=== PATIENT | male | born 1930 | race Caucasian/White ===

== ENCOUNTER → 2018-05-24 | Outpatient (CLI) | payer MEDICARE ==
[~2018-05-24] MED LIST: OMNIPAQUE 350 MG/ML, 100ML BOTTLE ONE
== END | disposition home or self-care (01) ==
LOC: RAD 09:43
PROVIDERS: ATTEND Internal Medicine Gastroenterology
DX: C25.9 Malignant neoplasm of pancreas, unspecified (principal); C78.7 Secondary malignant neoplasm of liver and intrahepatic bile duct; M19.012 Primary osteoarthritis, left shoulder; M19.011 Primary osteoarthritis, right shoulder; E04.2 Nontoxic multinodular goiter; N28.1 Cyst of kidney, acquired; R19.5 Other fecal abnormalities; R10.13 Epigastric pain; R63.4 Abnormal weight loss
CPT/HCPCS: 71260; 74177; Q9967

== ENCOUNTER 2018-06-01 08:14 | Day surgery (SDC) | payer MEDICARE ==
[~2018-06-01] VITALS: Ht 182.9 cm; Wt 82.7 kg
[2018-06-01 08:49] VITALS: BP 146/79
[2018-06-01] MEDS ORDERED: LACTATED RINGERS 1,000 ML IV SCH (08:53)
[2018-06-01] MEDS ORDERED: DUTASTERIDE (08:54)
[2018-06-01] MEDS ORDERED: TAMSULOSIN PO (08:54)
[2018-06-01] MEDS ORDERED: TIMOLOL (08:54)
[2018-06-01] MEDS ORDERED: CHLORHEXIDINE 15 ML UDC ONE (10:20)
[2018-06-01] MEDS ORDERED: MIDAZOLAM 1 MG/ML, 2ML ONE (10:30)
[2018-06-01] MEDS ORDERED: PROPOFOL 10 MG/ML, 20ML ONE (10:41)
[2018-06-01] MEDS ORDERED: SUCCINYLCHOLINE 20 MG/ML, 10ML ONE (10:41)
[2018-06-01] MEDS ORDERED: PIPERACILLIN/TAZO/PMX 3.375GM 50 ML ONE (10:54)
[2018-06-01] MEDS ORDERED: FENTANYL PF 100 MCG/2ML ONE (10:58)
[2018-06-01] MEDS ORDERED: ACETAMINOPHEN 325 MG TABLET PO PRN (11:30)
[2018-06-01] MEDS ORDERED: ONDANSETRON 2MG/ML, 2ML IV PRN (11:30)
[2018-06-01] MEDS ORDERED: FENTANYL PF 100 MCG/2ML IV PRN (11:30)
[2018-06-01] MEDS ORDERED: HYDROmorphone 2 MG/ML, 1ML IVPush PRN (11:30)
[2018-06-01] MEDS ORDERED: ETHYL ALCOHOL 98%, 5 ML ONE (12:00)
[2018-06-01] MEDS ORDERED: BUPIVACAINE/PF 0.25% ONE (12:00)
== END 2018-06-01 13:35 | disposition home or self-care (01) ==
LOC: OUT 08:14
PROVIDERS: ATTEND Internal Medicine Gastroenterology
DX: C25.1 Malignant neoplasm of body of pancreas (principal); K29.50 Unspecified chronic gastritis without bleeding; K44.9 Diaphragmatic hernia without obstruction or gangrene; N40.0 Benign prostatic hyperplasia without lower urinary tract symptoms
CPT/HCPCS: 36415; 43242; 86301; 88172; 88173; 88305; 93005; J0330; J2250; J2543; J2704; J3010; J3490; J7120

== ENCOUNTER 2018-06-05 09:25 | Emergency (ER) | payer MEDICARE ==
[~2018-06-05] VITALS: Ht 182.9 cm; Wt 83.0 kg
[~2018-06-05 09:25] MED LIST changes: +DUTASTERIDE; -OMNIPAQUE 350 MG/ML, 100ML BOTTLE ONE; +TAMSULOSIN PO; +TIMOLOL
--- NOTE | 2018-06-05 10:10 | NUR ---
ASSUMED CARE OF PT AT THIS TIME FROM [facility], AMBULATORY WITH STEADY GAIT, ACCOMPANIED BY SPOUSE. 87 Y/O M PRESENTS WITH ABD PAIN, STATES "ABDOMEN PAIN SINCE , EXPERIENCING SORE STOMACH, SORE BACK, DECREASED APPETITE, WEIGHT LOSS SINCE THEN. 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 May HAD BIOPSY OF PANCREAS AND INFORMATION SENT TO DR. CHAVARRIA, SUPPOSED TO SEE HIM SOMETIME THIS WEEK BUT THE STOMACH PAIN IS JUST GETTING SO UNCOMFORTABLE." RATES PAIN 4/10. ABD FIRM, DISTENDED, BOWEL SOUNDS ACTIVE, TENDER TO PALPATION. CONT PULSE OX, BP MONITORS APPLIED. VSS. A&OX4. SPOUSE AT BEDSIDE. CALL LIGHT IN REACH. FALL PRECAUTIONS IN PLACE. AWAITING EVAL BY ERP.
--- NOTE | 2018-06-05 10:13 | NUR ---
DR. CARTER AT BEDSIDE FOR EVALUATION
[2018-06-05 10:14] VITALS: BP 124/77
[2018-06-05] MEDS ORDERED: ACET-1600 PO (10:19)
--- NOTE | 2018-06-05 10:49 | NUR ---
DR. DOVE AT BEDSIDE DISCUSSING POC WITH PT AND PT SPOUSE. CONTINUE AWAITING ORDERS. VSS. RESTING COMFORTABLY. DENIES NEE TO USE RESTROOM. CALL LIGHT IN REACH.
--- NOTE | 2018-06-05 10:50 | NUR ---
REPORT AND CARE TO CONNEI OLIVA RN'S AT THIS TIME.
--- NOTE | 2018-06-05 10:50 | NUR ---
MD TO BEDSIDE.
== END 2018-06-05 11:24 | disposition home or self-care (01) ==
LOC: ED 11:20
DX: C25.9 Malignant neoplasm of pancreas, unspecified (principal); C78.7 Secondary malignant neoplasm of liver and intrahepatic bile duct
CPT/HCPCS: 99283